=== PATIENT | male | born 1975 | race Caucasian/White ===

== ENCOUNTER 2020-02-01 22:46 | Inpatient (IN) | payer MEDICAID ==
[~2020-02-01] VITALS: Ht 188 cm; Wt 82.1 kg
[2020-02-02] MEDS ORDERED: ZOLPIDEM TARTRATE 10 MG TABLET PO PRN (01:15)
[2020-02-02] MEDS ORDERED: HALOPERIDOL 5 MG TABLET PO PRN (01:15)
[2020-02-02] MEDS: LORazepam 2 MG TABLET PO PRN (01:41)
[2020-02-02 02:21] VITALS: BP 126/73
[2020-02-02 09:30] VITALS: BP 116/56
[2020-02-02] MEDS ORDERED: MAGNESIUM HYDROXIDE SUSPENSION 30 ML UDCUP PO PRN (10:30)
[2020-02-02] MEDS ORDERED: CloNIDine HCL 0.1 MG TABLET PO PRN (10:30)
[2020-02-02] MEDS ORDERED: ALBUTEROL SULFATE HFA 90 MCG/PUFF 8 GM INHALER IH PRN (10:30)
[2020-02-02] MEDS ORDERED: MAG HYDROX/AL HYDROX/SIMETH ES 30 ML SUSPENSION UDCUP PO PRN (10:30)
[2020-02-02] MEDS ORDERED: PETROLATUM,WHITE 28 GM JELLY TP PRN (10:30)
[2020-02-02] MEDS ORDERED: GuaiFENesin/D-METHORPHAN [SUGAR-FREE] 200-20MG/10 ML SYRUP UDCUP PO PRN (10:30)
[2020-02-02] MEDS ORDERED: ONDANSETRON HCL 4 MG TABLET PO PRN (10:30)
[2020-02-02] MEDS ORDERED: DOCUSATE SODIUM 100 MG CAPSULE PO PRN (10:30)
[2020-02-02] MEDS ORDERED: ACETAMINOPHEN 325 MG TABLET PO PRN (10:30)
[2020-02-02] MEDS ORDERED: LOPERAMIDE HCL 2 MG CAPSULE PO PRN (10:30)
[2020-02-02] MEDS ORDERED: NICOTINE 14 MG/24 HOUR PATCH TD PRN (10:30)
[2020-02-02] MEDS: LITHIUM CARBONATE 300 MG CAPSULE PO SCH ×2 (11:34→16:06)
[2020-02-02 16:30] VITALS: BP 134/72
[2020-02-02] MEDS: QUEtiapine FUMARATE 200 MG TABLET PO SCH (20:14)
[2020-02-03 08:40] VITALS: BP 119/63
[2020-02-03] MEDS: LITHIUM CARBONATE 300 MG CAPSULE PO SCH ×2 (09:00→16:43)
[2020-02-03 09:38] LABS: BASOPHILS % (AUTO) 0.5 % (0.0-2.0); EOSINOPHILS % (AUTO) 1.4 % (1.0-6.0); HEMATOCRIT 41.3 % (41-53); HEMOGLOBIN 13.9 g/dL (13.5-17.5); LYMPHOCYTES % (AUTO) 15.1 % (22.0-44.0); MEAN CORPUSCULAR HEMOGLOBIN 31.2 pg (26.0-34.0); MEAN CORPUSCULAR HGB CONC 33.6 G/dL (31.0-37.0); MEAN CORPUSCULAR VOLUME 93 fL (80-100); MONOCYTES # (AUTO) 0.5 K/uL (0.1-1.0); MONOCYTES % (AUTO) 8.2 % (2.0-9.0); NEUTROPHILS % (AUTO) 74.8 % (40.0-70.0); PLATELET COUNT (AUTO) 340 K/uL (150-450); RED BLOOD CELL COUNT(AUTO) 4.44 MIL/uL (4.50-5.90); RED CELL DISTRIBUTION WIDTH 13.9 % (11.5-14.5)
[2020-02-03 09:46] LABS: HEMOGLOBIN A1C 5.2 % (3.8-5.6)
[2020-02-03 09:57] LABS: ALANINE AMINOTRANSFERASE 38 U/L (12-78); ALBUMIN 3.2 g/dL (3.4-5.0); ALKALINE PHOSPHATASE 64 U/L (46-116); ANION GAP 8 mmol/L (8-16); ASPARTATE AMINOTRANSFERASE 25 U/L (15-37); BILIRUBIN,TOTAL 0.4 mg/dL (0.1-1.0); CALCIUM, TOTAL 8.6 mg/dL (8.8-10.5); CARBON DIOXIDE 27 mmol/L (22-29); CHLORIDE 106 mmol/L (98-107); CHOL/HDL RATIO 3.5 (4.2-7.3); CHOLESTEROL 145 mg/dL (131-200); CREATININE 0.83 mg/dL (0.60-1.30); GLOMERULAR FILTR. RATE CALC > 60 mL/min (>60); GLUCOSE,RANDOM 93 mg/dL (70-110); HDL CHOLESTEROL 41 mg/dL (40-60); LDL CHOL (CALC.) 75 mg/dL (0-130); POTASSIUM 4.2 mmol/L (3.5-5.1); SODIUM SERUM 141 mmol/L (136-145); THYROID STIMULATING HORMONE 0.36 uIU/mL (0.36-3.74); TRIGLYCERIDES 144 mg/dL (15-150); UREA NITROGEN, BLOOD 10 mg/dL (7-18)
[2020-02-03 16:47] VITALS: BP 114/56
[2020-02-03] MEDS: QUEtiapine FUMARATE 200 MG TABLET PO SCH (20:10)
[2020-02-04] MEDS: LITHIUM CARBONATE 300 MG CAPSULE PO SCH ×2 (08:16→16:11)
[2020-02-04] MEDS ORDERED: LORazepam 2 MG/ML VIAL IM ONE (16:30)
[2020-02-04] MEDS ORDERED: HALOPERIDOL LACTATE 5 MG/ML VIAL IM ONE (16:30)
[2020-02-04] MEDS ORDERED: DiphenhydrAMINE HCL 50 MG/ML VIAL IM ONE (16:30)
[2020-02-04 20:03] VITALS: BP 122/60
[2020-02-04] MEDS: QUEtiapine FUMARATE 200 MG TABLET PO SCH (21:00)
[2020-02-05] MEDS: LITHIUM CARBONATE 300 MG CAPSULE PO SCH ×2 (08:24→16:18)
[2020-02-05 09:32] VITALS: BP 116/57
[2020-02-05 16:22] VITALS: BP 134/71
[2020-02-05] MEDS: QUEtiapine FUMARATE 200 MG TABLET PO SCH (20:04)
[2020-02-06 06:53] VITALS: BP 126/67
[2020-02-06 08:35] VITALS: BP 111/59
[2020-02-06] MEDS: MULTIVITAMINS WITH IRON TABLET PO SCH (08:42)
[2020-02-06] MEDS: LORazepam 2 MG TABLET PO PRN (08:42)
[2020-02-06] MEDS: LITHIUM CARBONATE 300 MG CAPSULE PO SCH ×2 (08:42→16:47)
[2020-02-06] MEDS ORDERED: LORazepam 1 MG TABLET PO PRN (11:30)
[2020-02-06 16:07] VITALS: BP 109/67
[2020-02-06] MEDS: QUEtiapine FUMARATE 200 MG TABLET PO SCH (20:19)
[2020-02-07 08:00] VITALS: BP 119/71
[2020-02-07] MEDS: LITHIUM CARBONATE 300 MG CAPSULE PO SCH (08:12)
[2020-02-07] MEDS: MULTIVITAMINS WITH IRON TABLET PO SCH (08:12)
[2020-02-07] MEDS ORDERED: FentaNYL CITRATE-PF 100 MCG/2 ML VIAL ONE (08:37)
[2020-02-07] MEDS ORDERED: MIDAZOLAM HCL 2 MG/2 ML VIAL ONE (08:37)
[2020-02-07] MEDS ORDERED: MethylPREDNISolone SOD SUCC 125 MG/2 ML VIAL ONE (08:48)
[2020-02-07] MEDS ORDERED: ONDANSETRON HCL 4 MG/2 ML VIAL ONE (10:27)
[2020-02-07] MEDS ORDERED: QUEtiapine FUMARATE 200 MG TABLET PO SCH (10:45)
[2020-02-07] MEDS: LITHIUM CARBONATE 600 MG CAPSULE PO SCH (16:00)
[2020-02-07 16:47] VITALS: BP 142/83
[2020-02-07] MEDS ORDERED: DiphenhydrAMINE HCL 50 MG/ML VIAL ONE (17:56)
[2020-02-07] MEDS ORDERED: LORazepam 2 MG/ML VIAL ONE (17:56)
[2020-02-07] MEDS ORDERED: HALOPERIDOL LACTATE 5 MG/ML VIAL ONE (17:56)
[2020-02-07] MEDS ORDERED: LORazepam 2 MG/ML VIAL IM ONE (18:15)
[2020-02-07] MEDS ORDERED: DiphenhydrAMINE HCL 50 MG/ML VIAL IM ONE (18:15)
[2020-02-07] MEDS ORDERED: HALOPERIDOL LACTATE 5 MG/ML VIAL IM ONE (18:15)
[2020-02-08] MEDS: LITHIUM CARBONATE 600 MG CAPSULE PO SCH ×4 (09:00→16:13)
[2020-02-08] MEDS: ARIPiprazole 10 MG TABLET PO SCH ×3 (09:00→12:08)
[2020-02-08 09:59] VITALS: BP 116/62
[2020-02-08] MEDS: MULTIVITAMINS WITH IRON TABLET PO SCH (10:00)
[2020-02-08] MEDS: HydrOXYzine PAMOATE 50 MG CAPSULE PO PRN ×2 (12:08→16:13)
[2020-02-08 16:36] VITALS: BP 120/64
[2020-02-09 08:37] VITALS: BP 141/76
[2020-02-09] MEDS: LITHIUM CARBONATE 600 MG CAPSULE PO SCH ×2 (09:22→16:55)
[2020-02-09] MEDS: HydrOXYzine PAMOATE 50 MG CAPSULE PO PRN (09:22)
[2020-02-09] MEDS: MULTIVITAMINS WITH IRON TABLET PO SCH (09:22)
[2020-02-09] MEDS: ARIPiprazole 10 MG TABLET PO SCH (09:22)
[2020-02-09 10:25] VITALS: BP 141/76
[2020-02-09] MEDS: IBUPROFEN 400 MG TABLET PO PRN (10:25)
[2020-02-09 16:54] VITALS: BP 138/93
[2020-02-10] MEDS: LITHIUM CARBONATE 600 MG CAPSULE PO SCH ×2 (07:43→08:50)
[2020-02-10] MEDS: ARIPiprazole 10 MG TABLET PO SCH (07:43)
[2020-02-10] MEDS: MULTIVITAMINS WITH IRON TABLET PO SCH (07:43)
[2020-02-10 09:11] VITALS: BP 124/77
[2020-02-10 16:30] VITALS: BP_SYST 139; BP_SYST 150; BP_DIAS 82; BP_DIAS 88
[2020-02-10] MEDS: IBUPROFEN 400 MG TABLET PO PRN (22:45)
[2020-02-11 08:08] VITALS: BP 124/63
[2020-02-11 08:24] VITALS: BP 124/63
[2020-02-11] MEDS: IBUPROFEN 400 MG TABLET PO PRN (08:27)
[2020-02-11] MEDS: MULTIVITAMINS WITH IRON TABLET PO SCH (08:27)
[2020-02-11] MEDS: ARIPiprazole 10 MG TABLET PO SCH (08:27)
[2020-02-11 20:56] VITALS: BP 128/68
[2020-02-12 08:36] VITALS: BP 116/72
[2020-02-12] MEDS: PANTOPRAZOLE SODIUM 40 MG DR TABLET PO SCH (09:04)
[2020-02-12] MEDS: MULTIVITAMINS WITH IRON TABLET PO SCH (09:04)
[2020-02-12] MEDS: ARIPiprazole 10 MG TABLET PO SCH (09:04)
[2020-02-12] MEDS: LACTOBAC ACID/BULG/BIFID/THERM TABLET PO SCH (11:20)
[2020-02-12 16:10] VITALS: BP 121/74
[2020-02-12] MEDS: IBUPROFEN 400 MG TABLET PO PRN (18:20)
[2020-02-12 18:21] VITALS: BP 124/68
[2020-02-13 08:11] VITALS: BP 134/75
[2020-02-13] MEDS: LACTOBAC ACID/BULG/BIFID/THERM TABLET PO SCH (08:25)
[2020-02-13] MEDS: ARIPiprazole 10 MG TABLET PO SCH (08:25)
[2020-02-13] MEDS: MULTIVITAMINS WITH IRON TABLET PO SCH (08:25)
[2020-02-13] MEDS: PANTOPRAZOLE SODIUM 40 MG DR TABLET PO SCH (08:25)
[2020-02-13 16:09] VITALS: BP 117/70
[2020-02-13 16:10] VITALS: BP 117/70
[2020-02-13] MEDS: IBUPROFEN 400 MG TABLET PO PRN (16:14)
[2020-02-13] MEDS: HydrOXYzine PAMOATE 50 MG CAPSULE PO PRN (16:36)
[2020-02-14 08:02] VITALS: BP 106/69
[2020-02-14] MEDS: PANTOPRAZOLE SODIUM 40 MG DR TABLET PO SCH (08:28)
[2020-02-14] MEDS: MULTIVITAMINS WITH IRON TABLET PO SCH (08:28)
[2020-02-14] MEDS: ARIPiprazole 10 MG TABLET PO SCH (08:28)
[2020-02-14] MEDS: LACTOBAC ACID/BULG/BIFID/THERM TABLET PO SCH (08:29)
[2020-02-14] MEDS ORDERED: ARIP20TA PO (11:41)
[2020-02-14] MEDS ORDERED: ARIP15TA2 PO (11:42)
[2020-02-15] MEDS ORDERED: ARIPiprazole 15 MG TABLET PO SCH (09:00)
== END 2020-02-14 14:15 | disposition home or self-care (01) | DRG 885 ==
LOC: 3EI 02-02 00:45 → 3EC 02-07 19:02
DX: F20.0 Paranoid schizophrenia (principal); F15.20 Other stimulant dependence, uncomplicated; R45.851 Suicidal ideations; F10.10 Alcohol abuse, uncomplicated; F12.20 Cannabis dependence, uncomplicated; I95.9 Hypotension, unspecified; Z20.828 Contact with and (suspected) exposure to other viral communicable diseases; R51 Headache; F32.9 Major depressive disorder, single episode, unspecified; K21.9 Gastro-esophageal reflux disease without esophagitis; Z79.899 Other long term (current) drug therapy; Z91.14 Patient's other noncompliance with medication regimen; Z88.1 Allergy status to other antibiotic agents; Z71.41 Alcohol abuse counseling and surveillance of alcoholic; Z71.51 Drug abuse counseling and surveillance of drug abuser
CPT/HCPCS: 83036; 84443; J1200; J1630; J2060; J2250; J2405; J2930; J3010

== ENCOUNTER 2020-04-12 12:35 | Emergency (ER) | payer MEDICAID ==
[~2020-04-12] VITALS: Ht 188 cm; Wt 93.2 kg
[~2020-04-12 12:35] MED LIST: ARIP15TA2 PO
[2020-04-12] MEDS ORDERED: HydrOXYzine PAMOATE 50 MG CAPSULE ONE (12:47)
[2020-04-12] MEDS ORDERED: HydrOXYzine PAMOATE 50 MG CAPSULE PO ONE (13:00)
[2020-04-12 14:52] LABS: BASOPHILS % (AUTO) 0.7 % (0.0-2.0); EOSINOPHILS % (AUTO) 2.1 % (1.0-6.0); HEMATOCRIT 39.5 % (41-53); HEMOGLOBIN 13.5 g/dL (13.5-17.5); LYMPHOCYTES # (AUTO) 1.6 K/uL (1.0-4.8); LYMPHOCYTES % (AUTO) 19.1 % (22.0-44.0); MEAN CORPUSCULAR HEMOGLOBIN 31.1 pg (26.0-34.0); MEAN CORPUSCULAR HGB CONC 34.1 G/dL (31.0-37.0); MEAN CORPUSCULAR VOLUME 91 fL (80-100); MONOCYTES # (AUTO) 0.8 K/uL (0.1-1.0); MONOCYTES % (AUTO) 9.5 % (2.0-9.0); NEUTROPHILS # (AUTO) 5.8 K/uL (1.8-7.7); NEUTROPHILS % (AUTO) 68.6 % (40.0-70.0); PLATELET COUNT (AUTO) 346 K/uL (150-450); RED BLOOD CELL COUNT(AUTO) 4.34 MIL/uL (4.50-5.90); RED CELL DISTRIBUTION WIDTH 13.1 % (11.5-14.5)
[2020-04-12 15:02] LABS: ANION GAP 6 mmol/L (8-16); CALCIUM, TOTAL 8.7 mg/dL (8.8-10.5); CARBON DIOXIDE 28 mmol/L (22-29); CHLORIDE 103 mmol/L (98-107); CREATININE 1.06 mg/dL (0.60-1.30); GLOMERULAR FILTR. RATE CALC > 60 mL/min (>60); GLUCOSE,RANDOM 118 mg/dL (70-110); POTASSIUM 3.7 mmol/L (3.5-5.1); SODIUM SERUM 137 mmol/L (136-145); UREA NITROGEN, BLOOD 11 mg/dL (7-18)
[2020-04-12 15:07] LABS: ALANINE AMINOTRANSFERASE 27 U/L (12-78); ALBUMIN 3.5 g/dL (3.4-5.0); ALKALINE PHOSPHATASE 58 U/L (46-116); ASPARTATE AMINOTRANSFERASE 29 U/L (15-37); BILIRUBIN,TOTAL 0.7 mg/dL (0.1-1.0); TOTAL PROTEIN, SERUM 6.6 g/dL (6.4-8.2)
[2020-04-12 17:57] VITALS: BP 122/80
== END 2020-04-12 18:16 | disposition home or self-care (01) ==
LOC: EMS 12:38
DX: F20.9 Schizophrenia, unspecified (principal); Z59.0 Homelessness; F17.210 Nicotine dependence, cigarettes, uncomplicated; F15.90 Other stimulant use, unspecified, uncomplicated; Z88.8 Allergy status to other drugs, medicaments and biological substances
CPT/HCPCS: 36415; 80053; 85025; 99291; G0480